=== PATIENT | female | born 1975 | race Caucasian/White ===

== ENCOUNTER → 2017-09-02 | Day surgery (SDC) | payer OTHER ==
[~2017-09-02] VITALS: Ht 162.6 cm; Wt 88.5 kg
[~2017-09-02] MED LIST: MIRENA1 EACH
--- NOTE | 2017-09-02 13:22 | Operative Report ---
Operative/Inv Procedure Report Surgery Date: 09/02/17 Name of Procedure: Bilateral breast reduction Pre-Operative Diagnosis: Breast hypertrophy Post-Operative Diagnosis: Same Estimated Blood Loss: scant (250) Surgeon/[employer] Laminator: Mitchell Mancini MD Anesthesia: general endotracheal tube Operative/Procedure Note Note: Patient was counseled regards to the procedure the alternatives risks and expected outcomes as relates to her request for surgical intervention to treat symptomatic macromastia. No guarantees were given in regards to cup size. She signed and a SPS informed consent and has no questions regarding it today. An additional discussion of the risks and the patient accepted that by stent signing an informed consent. She was marked in the standing position for an inferior pedicle Martel pattern technique. She was brought to the operative placed supine on the table. Venodyne boots are placed and then chest was prepped and draped in usual sterile fashion. De-epithelialization was carried out of a 10 cm inferior pedicle. After resecting superior medial and lateral segments following skin flap development temporary closure was performed and the patient was put in the sitting position to jere the nipple areola complexes symmetrically. 3 layer closure was carried out of all tissues. Approximate 760 g was removed from each side.
== END ==
LOC: STS 01:13
DX: N62 Hypertrophy of breast (principal)
CPT/HCPCS: 81025; C9399; J0131; J0690; J1100; J2250; Q9968